=== PATIENT | female | born 1995 | race Two or more races ===

== ENCOUNTER 2017-04-11 19:19 | Emergency (ER) | payer OTHER ==
--- NOTE | 2017-04-11 20:02 | ER Document Report ---
ED Medical Screen (RME) - General Chief Complaint: Abdominal Pain Stated Complaint: BACK PAIN ABDOMINAL PAIN Time Seen by Provider: 04/11/17 20:01 Notes: Patient reports diffuse abdominal pain with pain to her lower back. She denies any urinary symptoms no vaginal symptoms. She states she has irregular periods but does not believe she is . TRAVEL OUTSIDE OF THE [place] IN LAST 30 DAYS: No - Related Data Allergies/Adverse Reactions: No Known Allergies Allergy (Verified 04/11/17 19:24) Past Medical History Renal/ Medical History: Denies: Hx Peritoneal Dialysis Physical Exam - Vital signs Vitals: Temp Pulse Resp BP Pulse Ox 98.2 F 72 18 127/70 H 96 04/11/17 19:25 04/11/17 19:25 04/11/17 19:25 04/11/17 19:25 04/11/17 19:25 Course - Vital Signs Vital signs: Temp Pulse Resp BP Pulse Ox 98.2 F 72 18 127/70 H 96 04/11/17 19:25 04/11/17 19:25 04/11/17 19:25 04/11/17 19:25 04/11/17 19:25
[2017-04-11 20:22] LABS: ABSOLUTE BASOPHILS # (AUTO) 0.1 10^3/uL (0.0-0.2); ABSOLUTE EOSINOPHILS # (AUTO) 0.2 10^3/uL (0.0-0.6); ABSOLUTE LYMPHOCYTES (AUTO) 2.2 10^3/uL (0.5-4.7); ABSOLUTE MONOCYTES (AUTO) 0.5 10^3/uL (0.1-1.4); ABSOLUTE NEUT (AUTO) 3.2 10^3/uL (1.7-8.2); EOSINOPHILS % (AUTO) 3.7 % (0-6); HEMATOCRIT 38.7 % (36.0-47.0); HEMOGLOBIN 13.8 g/dL (12.0-15.5); HGB HCT DIFFERENCE 2.7; LYMPHOCYTES % (AUTO) 35.5 % (13-45); MEAN CORPUSCULAR HEMOGLOBIN 32.7 pg (27.0-33.4); MEAN CORPUSCULAR HGB CONC 35.7 g/dL (32.0-36.0); MEAN CORPUSCULAR VOLUME 92 fl (80-97); MONOCYTES % (AUTO) 8.6 % (3-13); RED BLOOD COUNT 4.23 10^6/uL (3.72-5.28); RED CELL DISTRIBUTION WIDTH 12.5 % (11.5-14.0); SEGMENTED NEUTROPHILS % (AUTO) 51.2 % (42-78); WHITE BLOOD COUNT 6.2 10^3/uL (4.0-10.5)
[2017-04-11] MEDS ORDERED: HYDROMORPHONE HCL INJ/PF 2 MG/ML AMPULE IV ONE (20:28)
[2017-04-11] MEDS ORDERED: NORMAL SALINE 1000 ML 1,000 ML IV ONE (20:28)
[2017-04-11] MEDS ORDERED: ONDANSETRON HCL INJ/PF 4 MG/2 ML SDV IV ONE (20:28)
--- NOTE | 2017-04-11 20:28 | ER Document Report ---
ED GI/ - General Mode of Arrival: Ambulatory Information source: Patient TRAVEL OUTSIDE OF THE [place]. IN LAST 30 DAYS: No <CARLA PEREZ - Last Filed: 04/11/17 22:12> <OTF [place] - Last Filed: 04/12/17 00:12> - General Chief Complaint: Abdominal Pain Stated Complaint: BACK PAIN ABDOMINAL PAIN Time Seen by Provider: 04/11/17 20:01 Notes: Patient is a 22-year-old female that presents to the emergency department today with complaints of lower back pain and right-sided abdominal pain. Patient states her pain initially began in her lower back yesterday and today it seems to be localized in her right side but sometimes she feels pain in the left lower quadrant. Patient states bumps on the route here exacerbated her pain. Patient states she is mildly nauseated but she denies any dysuria, blood in her urine, vomiting, fevers, or chills. (CARLA PEREZ) - Related Data Allergies/Adverse Reactions: No Known Allergies Allergy (Verified 04/11/17 19:24) Past Medical History - General Information source: Patient - Social History Smoking Status: Unknown if Ever Smoked Cigarette use (# per day): No Frequency of alcohol use: None Drug Abuse: None Lives with: Family Family History: Reviewed & Not Pertinent Renal/ Medical History: Reports: Other - PCOS Surgical Hx: Negative <CARLA PEREZ - Last Filed: 04/11/17 22:12> - Social History Smoking Status: Never Smoker <OTF [place] - Last Filed: 04/12/17 00:12> Review of Systems - Review of Systems Constitutional: denies: Chills, Fever EENT: No symptoms reported Cardiovascular: No symptoms reported Respiratory: No symptoms reported Gastrointestinal: See HPI, Abdominal pain, Nausea. denies: Vomiting Genitourinary: denies: Dysuria Female Genitourinary: denies: , Vaginal bleeding Musculoskeletal: See HPI, Back pain Skin: No symptoms reported Hematologic/Lymphatic: No symptoms reported Neurological/Psychological: No symptoms reported -: Yes All other systems reviewed and negative <CARLA PEREZ - Last Filed: 04/11/17 22:12> Physical Exam <CARLA PEREZ - Last Filed: 04/11/17 22:12> - Genitourinary External exam: Normal Speculum exam: Vaginal discharge Vaginal bleeding: None Bimanuel exam: Normal. No: Cervical motion tender, Bladder/Urethral tender, Adnexal mass <OTF [place] - Last Filed: 04/12/17 00:12> - Vital signs Vitals: Temp Pulse Resp BP Pulse Ox 98.2 F 72 18 127/70 H 96 04/11/17 19:25 04/11/17 19:25 04/11/17 19:25 04/11/17 19:25 04/11/17 19:25 - Notes Notes: PHYSICAL EXAM GENERAL: Alert, interacts well. Appears mildly uncomfortable. HEAD: Normocephalic, atraumatic. EYES: Pupils equal, round, and reactive to light. Extraocular movements intact. ENT: Oral mucosa moist, tongue midline. NECK: Full range of motion. Supple. Trachea midline. LUNGS: Clear to auscultation bilaterally, no wheezes, rales, or rhonchi. No respiratory distress. HEART: Regular rate and rhythm. No murmurs, gallops, or rubs. ABDOMEN: Soft, RLQ and LLQ tenderness with palpation, small amount of guarding in RLQ. Non-distended. Bowel sounds present in all 4 quadrants. EXTREMITIES: Moves all 4 extremities spontaneously. No edema, radial and dorsalis pedis pulses 2/4 bilaterally. No cyanosis. BACK: Bilateral paraspinal lumbar musculature tenderness with palpation. NEUROLOGICAL: Alert and oriented x3. Normal speech. PSYCH: Normal affect, normal mood. SKIN: Warm, dry, normal turgor. No rashes or lesions noted. (CARLA PEREZ) Course - Laboratory Result Diagrams: 04/11/17 20:05 04/11/17 20:05 <CARLA PEREZ - Last Filed: 04/11/17 22:12> - Laboratory Result Diagrams: 04/11/17 20:05 04/11/17 20:05 <OTF [place] - Last Filed: 04/12/17 00:12> - Re-evaluation Re-evalutation: 04/12/17 00:11 CBC unremarkable, CMP unremarkable, lipase normal, urinalysis shows small leukocyte esterase but 616 squamous epithelial cells suspicious for contaminated specimen. test is negative, CT scan of the abdomen and pelvis with IV contrast was unfortunately unable to identify the appendix. It did have small bilateral cysts that are identified consistent with ovarian cysts. Repeat abdominal examination shows that the patient does have some small amount of residual right lower quadrant pain but has improved with hydration. Patient is able to walk without pain at this point. At this point I did discuss the patient with Dr. Corcoran the surgeon on-call who agreed to come to the emergency department and examine the patient's abdomen personally. He feels after examining the patient that the timeframe in the exam are not very suspicious for appendicitis, he did offer admission to the hospital for observation and repeat abdominal examinations, patient declined this and prefers to go home with a muscle relaxer in the form of Robaxin for the pain she is having in her back and to be rechecked in 12-24 hours should her pain remain or worsen. Patient will return sooner should she develop worsening pain, vomiting, fevers or any new or concerning symptoms. (OTF [place]) - Vital Signs Vital signs: Temp Pulse Resp BP Pulse Ox 98.1 F 68 16 114/90 H 100 04/12/17 00:06 04/12/17 00:06 04/12/17 00:06 04/12/17 00:06 04/12/17 00:06 - Laboratory Laboratory results interpreted by me: 04/11/17 04/11/17 20:05 20:05 ALT 58 H Ur Leukocyte Esterase SMALL H Discharge <CARLA PEREZ - Last Filed: 04/11/17 22:12> <OTF [place] - Last Filed: 04/12/17 00:12> - Discharge Clinical Impression: Right lower quadrant abdominal pain of unknown etiology Condition: Stable Disposition: HOME, SELF-CARE Additional Instructions: Observation for Appendicitis At this time, the abdominal pain does not seem to be appendicitis. Our next "test" will be passage of time. If you have early appendicitis, signs will appear to help us make the diagnosis. Most of the time, the pain goes away. In these cases, the pain is usually due to a virus in the lymph glands near the appendix, or due to an ovarian cyst or ovulation. Unless the pain is gone, you should come back for a recheck. This is usually done in 8 to 12 hours. Be sure you understand your follow-up instructions. Come back immediately if: (1) the pain becomes much more severe and sharply increases with movement or coughing, (2) vomiting becomes frequent, (3) there is blood in the vomit, urine, or bowel movements, (4) there are shaking chills or fever, or (5) the abdomen becomes more distended or swollen. Prescriptions: Fluconazole [Diflucan] 150 mg PO ONCE PRN #1 tablet PRN Reason: Methocarbamol [Robaxin 750 mg Tablet] 750 mg PO ASDIR PRN #40 tablet PRN Reason: Scribe Attestation: 04/12/17 00:12 I personally performed the services described in the documentation, reviewed and edited the documentation which was dictated to the scribe in my presence, and it accurately records my words and actions. (OTF [place]) Scribe Documentation - Scribe Written by Hannah:: Hannah Serra, 04/11/2017 [id number] acting as scribe for :: Rafael <CARLA PEREZ - Last Filed: 04/11/17 22:12>
[2017-04-11 20:40] LABS: ALANINE AMINOTRANSFERASE 58 U/L (9-52); ALBUMIN 4.3 g/dL (3.5-5.0); ALKALINE PHOSPHATASE 70 U/L (38-126); ANION GAP 13 (5-19); ASPARTATE AMINO TRANSFERASE 30 U/L (14-36); BILIRUBIN,DIRECT 0.2 mg/dL (0.0-0.4); BILIRUBIN,TOTAL 0.4 mg/dL (0.2-1.3); BLOOD UREA NITROGEN 17 mg/dL (7-20); CALCIUM 9.7 mg/dL (8.4-10.2); CARBON DIOXIDE 24 mmol/L (22-30); CHLORIDE 105 mmol/L (98-107); CREATININE RESULT 0.79 mg/dL (0.52-1.25); GLUCOSE 86 mg/dL (75-110); LIPASE 88.8 U/L (23-300); POTASSIUM 4.6 mmol/L (3.6-5.0); SODIUM 141.6 mmol/L (137-145); TOTAL PROTEIN 7.4 g/dL (6.3-8.2)
[2017-04-11 21:02] LABS: APPEARANCE,URINE SLIGHTLY-CLOUDY; BILIRUBIN,URINE NEGATIVE (NEGATIVE); GLUCOSE, URINE NEGATIVE (NEGATIVE); KETONES,URINE NEGATIVE (NEGATIVE); LEUKOCYTE ESTERASE,URINE SMALL (NEGATIVE); NITRITE,URINE NEGATIVE (NEGATIVE); PROTEIN,URINE NEGATIVE (NEGATIVE); UROBILINOGEN,URINE NEGATIVE mg/dL (<2.0)
--- NOTE | 2017-04-11 22:02 | RADIOLOGY REPORT (SQ) ---
EXAM DESCRIPTION: CT ABD/PELVIS WITH IV ONLY COMPLETED DATE/TIME: 04/11/2017 9:49 pm REASON FOR STUDY: RLQ pain, nausea, B flank pain COMPARISON: None. TECHNIQUE: CT scan of the abdomen and pelvis performed using helical scanning technique with dynamic intravenous contrast injection. No oral contrast. Images reviewed with lung, soft tissue, and bone windows. Reconstructed coronal and sagittal MPR images reviewed. Delayed images for evaluation of the urinary system also acquired. All images stored on PACS. All CT scanners at this facility use dose modulation, iterative reconstruction, and/or weight based d osing when appropriate to reduce radiation dose to as low as reasonably achievable (ALARA). [facility]: Dose Right [facility]: CareDose [facility]: Dose Right [facility]: Teradose 4D [facility]: [employer] CONTRAST TYPE AND DOSE: contrast/concentration: Isovue 370.00 mg/ml; Total Contrast Delivered: 93.0 ml; Total Saline Delivered: 46.0 ml RENAL FUNCTION: None required. The patient is less than 50 years old. RADIATION DOSE: Up-to-date CT equipment and radiation dose reduction techniques were employed. CTDIv ol: 11.9 - 15.8 mGy. DLP: 1425 mGy-cm.. LIMITATIONS: None. FINDINGS: LOWER CHEST: No significant findings. No nodules or infiltrates. LIVER: Normal size. No masses. No dilated ducts. There is diffuse fatty infiltration of the liver. SPLEEN: Normal size. No focal lesions. PANCREAS: No masses. No significant calcifications. No adjacent inflammation or peripancreatic fluid collections. Pancreatic duct not dilated. GALLBLADDER: No identified stones by CT criteria. No inflammatory changes to suggest cholecystitis. ADRENAL GLANDS: No significant masses or asymmetry. RIGHT KIDNEY AND URETER: No solid masses. No significant calcifications. No hydronephrosis or hyd roureter. LEFT KIDNEY AND URETER: No solid masses. No significant calcifications. No hydronephrosis or hydr oureter. AORTA AND VESSELS: No aneurysm. No dissection. Renal arteries, SMA, celiac without stenosis. RETROPERITONEUM: No retroperitoneal adenopathy, hemorrhage or masses. BOWEL AND PERITONEAL CAVITY: No masses or inflammatory changes. No free fluid or peritoneal masses. APPENDIX: Appendix is not identified PELVIS: Small bilateral cysts are identified consistent with ovarian cysts. No free fluid. Normal bl adder. ABDOMINAL WALL: No masses. No hernias. BONES: No significant or acute findings. OTHER: No other significant finding. IMPRESSION: NO SIGNIFICANT OR ACUTE FINDING IN THE ABDOMEN OR PELVIS ON CT SCAN WITH IV CONTRAST. TECHNICAL DOCUMENTATION: JOB ID: [id number] Quality ID # [id number]: Final reports with documentation of one or more dose reduction techniques (e.g., Au tomated exposure control, adjustment of the mA and/or kV according to patient size, use of iterative reconstruction technique) 2010 [employer]- All Rights Reserved
[2017-04-12 00:07] VITALS: BP 114/90
[2017-04-12 01:40] LABS: CHLAM PCR NOT DETECTED (NOT DETECT)
== END 2017-04-12 00:06 | disposition home or self-care (01) ==
LOC: ER 19:19
DX: R10.31 Right lower quadrant pain (principal); E28.2 Polycystic ovarian syndrome; R10.32 Left lower quadrant pain; M54.5 Low back pain; R11.0 Nausea; N89.8 Other specified noninflammatory disorders of vagina
CPT/HCPCS: 99284; 96361; 96374; 96375; 36415; 87210; 83690; 85025; 81025; 80053; 81001; 87491; 87591; 74177; J1170; J2405; J7030

== ENCOUNTER 2017-05-19 13:09 | Emergency (ER) | payer OTHER ==
--- NOTE | 2017-05-19 16:01 | ER Document Report ---
ED GI/ - General Chief Complaint: Abdominal Pain Stated Complaint: ABDOMINAL PAIN,LEFT SIDE PAIN Time Seen by Provider: 05/19/17 15:57 Mode of Arrival: Ambulatory Information source: Patient Notes: 22 yo non smoker, no drugs, no etoh, female that moved from [facility] has intermittant LLQ pain for 1 year, flares more intesnse when ovulating. She wants the pain to stop. Has been told that is was PCOS (based on hormones although US was negative) or endometriosis (which was told she need laproscopic evaluation). Here because it is more severe this week, like someone pulling somehting down and out from inside. No urinary symptoms, no vaginal discharge, thinks she had fever this am (chills and fever). No uri symptoms. Nausea without vomiting. LMP Nov. 8, OC's, none missed. G0. Umb. hernia repair. BM's less than normal past few weeks. No hx crohns, colitis or divertic. TRAVEL OUTSIDE OF THE [place].S. IN LAST 30 DAYS: No - Related Data Allergies/Adverse Reactions: No Known Allergies Allergy (Verified 05/19/17 13:12) Past Medical History - General Information source: Patient - Social History Smoking Status: Never Smoker Frequency of alcohol use: None Drug Abuse: None Lives with: Spouse/Significant other Family History: Reviewed & Not Pertinent - Medical History Notes: see above Renal/ Medical History: Denies: Hx Peritoneal Dialysis Surgical Hx: Negative Physical Exam - Vital signs Vitals: Temp Pulse Resp BP Pulse Ox 98.1 F 81 16 123/64 99 05/19/17 13:20 05/19/17 13:20 05/19/17 13:20 05/19/17 13:20 05/19/17 13:20 Interpretation: Normal - General General appearance: Appears well, Alert - HEENT Head: Normocephalic, Atraumatic Eyes: Normal Pupils: PERRL - Respiratory Respiratory status: No respiratory distress Chest status: Nontender Breath sounds: Normal Chest palpation: Normal - Cardiovascular Rhythm: Regular Heart sounds: Normal auscultation Murmur: No - Abdominal Inspection: Normal Distension: No distension Bowel sounds: Normal Tenderness: Tender - minimal LLQ over bowel Organomegaly: No organomegaly - Back Back: Normal, Nontender. No: Tender - Extremities General upper extremity: Normal inspection, Nontender, Normal color, Normal ROM , Normal temperature General lower extremity: Normal inspection, Nontender, Normal color, Normal ROM , Normal temperature, Normal weight bearing. No: Araceli's sign - Neurological Neuro grossly intact: Yes Cognition: Normal Orientation: AAOx4 Barrera Coma Scale Eye Opening: Spontaneous Barrera Coma Scale Verbal: Oriented [place] Coma Scale Motor: Obeys Commands [place] Coma Scale Total: 15 Speech: Normal Motor strength normal: LUE, RUE, LLE, RLE Sensory: Normal - Psychological Associated symptoms: Normal affect, Normal mood - Skin Skin Temperature: Warm Skin Moisture: Dry Skin Color: Normal Skin irregularity: negative: Rash Course - Re-evaluation Re-evalutation: 05/19/17 CT in ER previously showed no diverti, cysts, mass, absces. Lags ok today, will refer to xochitl HARTMAN with motrin and tylenol. - Vital Signs Vital signs: Temp Pulse Resp BP Pulse Ox 98.3 F 84 18 117/65 98 05/19/17 18:20 05/19/17 18:20 05/19/17 18:20 05/19/17 18:20 05/19/17 18:20 - Laboratory Result Diagrams: 05/19/17 16:25 05/19/17 16:25 Laboratory results interpreted by me: 05/19/17 05/19/17 15:55 16:25 AST 75 H ALT 122 H Ur Leukocyte Esterase SMALL H Discharge - Discharge Clinical Impression: LLQ pain Condition: Good Disposition: HOME, SELF-CARE Instructions: Abdominal Pain ([facility]), Anti-Inflammatory Medication ([facility]), Liver Function Abnormality ([facility]) Additional Instructions: call [phone] on for your hepatitis panel motrin for pain to er if worse [facility] on , they can recehck your liver enzymes no alcohol, tylenol, and stop the methocarbimol. copy of labwork given to you Prescriptions: Ibuprofen [Motrin 800 mg Tablet] 800 mg PO Q8HP PRN #30 tablet PRN Reason: Referrals: KENDRA GILBERT MD [ACTIVE STAFF] - Follow up as needed
[2017-05-19 16:33] LABS: APPEARANCE,URINE CLOUDY; BILIRUBIN,URINE NEGATIVE (NEGATIVE); GLUCOSE, URINE NEGATIVE (NEGATIVE); KETONES,URINE NEGATIVE (NEGATIVE); LEUKOCYTE ESTERASE,URINE SMALL (NEGATIVE); NITRITE,URINE NEGATIVE (NEGATIVE); PROTEIN,URINE NEGATIVE (NEGATIVE); URINE SPECIFIC GRAVITY 1.013; UROBILINOGEN,URINE NEGATIVE mg/dL (<2.0)
[2017-05-19 16:36] LABS: BACTERIA,URINE TRACE /HPF; WBC,URINE 0-1 /HPF
[2017-05-19 16:45] LABS: ABSOLUTE EOSINOPHILS # (AUTO) 0.2 10^3/uL (0.0-0.6); ABSOLUTE LYMPHOCYTES (AUTO) 1.5 10^3/uL (0.5-4.7); ABSOLUTE MONOCYTES (AUTO) 0.5 10^3/uL (0.1-1.4); ABSOLUTE NEUT (AUTO) 2.8 10^3/uL (1.7-8.2); BASOPHILS % (AUTO) 0.9 % (0-2); EOSINOPHILS % (AUTO) 4.2 % (0-6); HEMATOCRIT 42.3 % (36.0-47.0); HEMOGLOBIN 15.2 g/dL (12.0-15.5); HGB HCT DIFFERENCE 3.3; LYMPHOCYTES % (AUTO) 29.6 % (13-45); MEAN CORPUSCULAR HEMOGLOBIN 32.2 pg (27.0-33.4); MEAN CORPUSCULAR HGB CONC 35.8 g/dL (32.0-36.0); MEAN CORPUSCULAR VOLUME 90 fl (80-97); MONOCYTES % (AUTO) 9.4 % (3-13); RED CELL DISTRIBUTION WIDTH 12.3 % (11.5-14.0); SEGMENTED NEUTROPHILS % (AUTO) 55.9 % (42-78)
[2017-05-19 17:06] LABS: ALANINE AMINOTRANSFERASE 122 U/L (9-52); ALBUMIN 4.3 g/dL (3.5-5.0); ALKALINE PHOSPHATASE 73 U/L (38-126); ANION GAP 12 (5-19); ASPARTATE AMINO TRANSFERASE 75 U/L (14-36); BILIRUBIN,DIRECT 0.4 mg/dL (0.0-0.4); BILIRUBIN,TOTAL 0.6 mg/dL (0.2-1.3); BLOOD UREA NITROGEN 12 mg/dL (7-20); CALCIUM 9.5 mg/dL (8.4-10.2); CARBON DIOXIDE 24 mmol/L (22-30); CHLORIDE 104 mmol/L (98-107); CREATININE RESULT 0.78 mg/dL (0.52-1.25); GLUCOSE 93 mg/dL (75-110); POTASSIUM 4.3 mmol/L (3.6-5.0); SODIUM 140.3 mmol/L (137-145); TOTAL PROTEIN 7.6 g/dL (6.3-8.2)
[2017-05-19 18:21] VITALS: BP 117/65
== END 2017-05-19 18:33 | disposition home or self-care (01) ==
LOC: ER 13:09
DX: R10.32 Left lower quadrant pain (principal); R11.0 Nausea; Z79.3 Long term (current) use of hormonal contraceptives
CPT/HCPCS: 36415; 80053; 80074; 81001; 81025; 85025; 87086; 99284

== ENCOUNTER 2017-07-19 15:52 | Emergency (ER) | payer OTHER ==
[2017-07-19 16:03] VITALS: BP 140/78
--- NOTE | 2017-07-19 16:10 | ER Document Report ---
ED Medical Screen (RME) - General Chief Complaint: Psych Problem Stated Complaint: PSYCH EVAL Time Seen by Provider: 07/19/17 16:06 Mode of Arrival: Ambulatory Information source: Patient, Legal Guardian TRAVEL OUTSIDE OF THE [place]. IN LAST 30 DAYS: No - HPI Patient complains to provider of: psych Onset: Other - pt. with psych history voiced suicidal ideation concerns earlier today so caretakers brought her here to contract for safety - Related Data Allergies/Adverse Reactions: No Known Allergies Allergy (Verified 07/19/17 15:54) Past Medical History - Social History Chew tobacco use (# tins/day): No Frequency of alcohol use: None Drug Abuse: None Renal/ Medical History: Denies: Hx Peritoneal Dialysis Physical Exam - Vital signs Vitals: Temp Pulse Resp BP Pulse Ox 97.8 F 65 18 140/78 H 99 07/19/17 16:02 07/19/17 16:02 07/19/17 16:02 07/19/17 16:02 07/19/17 16:02 Course - Vital Signs Vital signs: Temp Pulse Resp BP Pulse Ox 97.8 F 65 18 140/78 H 99 07/19/17 16:02 07/19/17 16:02 07/19/17 16:02 07/19/17 16:02 07/19/17 16:02
--- NOTE | 2017-07-19 16:45 | PSYCHOLOGICAL NOTE ---
Psych Note - Psych Note Psych Note: Reason for consult: Suicidal ideation Consent permissions: Mobile workers' compensation claims examiner, [place] Patient presents to the ED with mobile crisis. Patient was being seen at her therapists office and disclosed that she was having suicidal thoughts and reportedly a plan. Patient denies that she has any plan. States that "we were just talking about it and now here I am" Patient is pleasant and cooperative at pivot. Mobile workers' compensation claims examiner remains at patient's side. Patient disclosed that she is recently moved to [place] (patient's is [employer] duty [employer]). Patient states that she was talking with her therapist today and disclosed that she thought of suicide. She stated she has had suicidal ideation in the past as fighting thoughts however this 1 stayed "a little longer than normal." Patient disclosed that her passing thought was "what if I just drove my car into a tree." Patient states her normal passing thoughts are "I do not want to be here." Patient denies current suicidal ideation stating that this was a few days ago. Patient states that she has been feeling overwhelmed trying to get everything ready for her coming home. Patient has no history of inpatient psychiatric treatment. Patient also saw her psychiatrist, Dr. Lainez, today who did not prescribe any medications stating that she was "good just needed to possibly take some melatonin to help me sleep at night." Patient disclosed that her will be returning home tomorrow evening. Confirms she will be meeting with mobile crisis responder tomorrow at 11 AM. Is able to identify multiple coping mechanisms to include therapy dog. Patient is alert and orientated to person, place, time and circumstance. Mood is euthymic with congruent affect. Patient openly engages with clinician smiles and laughs. Patient denies current suicidal ideation discloses passing suicidal ideation a few days ago. Patient denies homicidal ideation. Delusions are absent behaviors congruent with intact reality based presentation i.e. organized, linear, rational thinking. Eye contact was well-maintained. Conversational speech was within normal rate, tone and prosody. Intellectual abilities appear to be within the average range. Attention and concentration were good. Insight, judgment, impulse control are good. 311 (F32.9) unspecified depressive disorder per history provided by patient Impression\\plan: Patient is considered psychiatrically clear. Patient does not meet IVC criteria per [place] GS 122C. Patient disclosed suicidal ideation occurring a couple days ago. While patient had stated "plan" that she identified as a thought of "driving her car into a tree," patient describes it as a passing thought that concerned her since normally her passing thoughts are very vague as in "I do not want to be here. Patient denies continued suicidal ideation. Patient has demonstrated strong insight, judgment, and impulse control, she is been in the [facility] for a short time and has already seen a therapist and psychiatrist. Patient openly engage with her therapist and has followed through with all requests today. Patient agrees to meet with the mobile workers' compensation claims examiner at 11 AM tomorrow. Patient does not take any psychiatric medications. Patient has no history of suicide attempts or inpatient psychiatric treatment. Patient is recommended to follow-up with mobile crisis tomorrow at 11 AM and continue her outpatient therapeutic treatment with her providers. Dr. Shanks was consulted and the care management of this patient; attending physician is agreement with recommendations and disposition.
--- NOTE | 2017-07-25 20:22 | ER Document Report ---
ED Psych Disorder / Suicide - General Chief Complaint: Psych Problem Stated Complaint: PSYCH EVAL Time Seen by Provider: 07/19/17 16:06 Mode of Arrival: Ambulatory Information source: Patient TRAVEL OUTSIDE OF THE [place] IN LAST 30 DAYS: No - HPI Patient complains to provider of: Suicidal ideation - pt here for depression and suicidal ideation - Related Data Allergies/Adverse Reactions: No Known Allergies Allergy (Verified 07/19/17 15:54) Past Medical History - General Information source: Patient, Legal Guardian - Social History Smoking Status: Never Smoker Chew tobacco use (# tins/day): No Frequency of alcohol use: None Drug Abuse: None Family History: Reviewed & Not Pertinent Patient has suicidal ideation: Yes Patient has homicidal ideation: No Renal/ Medical History: Denies: Hx Peritoneal Dialysis Review of Systems - Review of Systems Constitutional: No symptoms reported EENT: No symptoms reported Cardiovascular: No symptoms reported Respiratory: No symptoms reported Gastrointestinal: No symptoms reported Neurological/Psychological: Depression, Suicidal ideation -: Yes All other systems reviewed and negative Physical Exam - Vital signs Vitals: Temp Pulse Resp BP Pulse Ox 97.8 F 65 18 140/78 H 99 07/19/17 16:02 07/19/17 16:02 07/19/17 16:02 07/19/17 16:02 07/19/17 16:02 - General General appearance: Appears well In distress: None - HEENT Head: Normocephalic Pharynx: Normal Neck: Normal - Respiratory Respiratory status: No respiratory distress Breath sounds: Normal - Cardiovascular Rhythm: Regular Heart sounds: Normal auscultation - Abdominal Inspection: Normal Tenderness: Nontender Course - Vital Signs Vital signs: Temp Pulse Resp BP Pulse Ox 97.8 F 65 18 140/78 H 99 07/19/17 16:02 07/19/17 16:02 07/19/17 16:02 07/19/17 16:02 07/19/17 16:02 - Consults [facility] Consulted provider: will come to ER Discharge - Discharge Clinical Impression: Depression Qualifiers: Depression Type: unspecified Qualified Code(s): F32.9 - Major depressive disorder, single episode, unspecified Condition: Stable Disposition: HOME, SELF-CARE Additional Instructions: rest, continue current meds, return if worse Referrals: ARLENE MCNEIL MD [ACTIVE STAFF] - Follow up as needed
== END 2017-07-19 16:30 | disposition home or self-care (01) ==
LOC: ER 15:52
DX: F32.9 Major depressive disorder, single episode, unspecified (principal); R45.851 Suicidal ideations
CPT/HCPCS: 99285